=== PATIENT | male | born 1980 | race Two or more races ===

== ENCOUNTER 2022-04-15 14:03 | Emergency (ER) | payer MEDICAID ==
[~2022-04-15] VITALS: Ht 175.3 cm; Wt 90.9 kg
[2022-04-15] MEDS ORDERED: HYDROcodone-ACET 5/325MG TAB PO ONE (15:45)
[2022-04-15] MEDS ORDERED: diphenhdrAMINE HCL 50 MG/1 ML VL IV ONE (15:45)
[2022-04-15] MEDS ORDERED: DexAMETHasone SOD PHOS 10MG/1ML VIAL INJ IV ONE (15:45)
[2022-04-15] MEDS ORDERED: KETOROLAC TROMETH 30 MG/ML 1ML VIAL IV ONE (15:45)
[2022-04-15] MEDS: METOCLOPRAMIDE HCL 5MG/ml INJ 2ml VIAL IV ONE ×2 (18:27→18:31)
[2022-04-15 18:40] VITALS: BP 155/104
== END 2022-04-15 16:50 | disposition home or self-care (01) ==
LOC: ER 14:06
DX: R51.9 Headache, unspecified (principal); R42 Dizziness and giddiness
CPT/HCPCS: 70450; 82962; 96374; 96375; 99284; J1100; J1200; J1885; J2765